=== PATIENT | female | born 1990 | race Caucasian/White ===

== ENCOUNTER 2018-08-28 02:20 | Emergency (ER) | payer OTHER ==
[~2018-08-28] VITALS: Ht 165.1 cm; Wt 81.2 kg
[2018-08-28 02:33] VITALS: Ht 165.1 cm; Wt 81.2 kg
[2018-08-28 03:23] LABS: BASOPHIL % 0.3 % (0-2); PLATELET COUNT 192 x10^3mcL (130-400); RED CELL DISTRIBUTION WIDTH 13.3 % (11.5-14.5)
[2018-08-28 03:53] LABS: CALCIUM 8.2 mg/dL (8.5-10.1); CARBON DIOXIDE 30.1 mmol/L (21-32); CHLORIDE SERUM 105 mmol/L (98-107); CREATININE SERUM 0.9 mg/dL (0.6-1.0); GFR1 > 60 mL/min; GLUCOSE SERUM 106 mg/dL (74-106); SODIUM SERUM 139 mmol/L (136-145)
[2018-08-28 04:00] LABS: ALKALINE PHOSPHATASE 145 U/L (46-116); ALT/SGPT 21 U/L (14-59); AST/SGOT 15 U/L (15-37); BILIRUBIN TOTAL 0.17 mg/dL (0.20-1.00); LIPASE 168 IU/L (73-393); TOTAL PROTEIN, SERUM 6.8 g/dL (6.4-8.2)
[2018-08-28 04:03] LABS: ALBUMIN 3.3 g/dL (3.4-5.0)
[2018-08-28 05:06] VITALS: BP 120/60
== END 2018-08-28 05:06 | disposition home or self-care (01) ==
LOC: ED 02:20
PROVIDERS: Emergency Medicine
DX: K80.20 Calculus of gallbladder without cholecystitis without obstruction (principal); Z98.890 Other specified postprocedural states
CPT/HCPCS: J1885; J2405; J7030; Q0092